=== PATIENT | male | born 1965 | race Caucasian/White ===

== ENCOUNTER → 2017-09-11 | Outpatient (CLI) | payer OTHER | END | disposition home or self-care (01) | LOC: CDC 09:36 | DX: Z01.810 Encounter for preprocedural cardiovascular examination (principal); R00.1 Bradycardia, unspecified | CPT/HCPCS: 93000 ==

== ENCOUNTER 2017-09-19 05:37 | Day surgery (SDC) | payer OTHER ==
[~2017-09-19] VITALS: Ht 182.9 cm; Wt 88.5 kg
[2017-09-19 05:56] VITALS: BP 113/77
[2017-09-19 13:09] VITALS: BP 119/60
[2017-09-19 19:25] VITALS: BP 105/64
[2017-09-19 23:32] VITALS: BP 112/60
[2017-09-20 03:27] VITALS: BP 104/58
[2017-09-20 07:24] VITALS: BP 107/58
[2017-09-20 07:32] LABS: HEMATOCRIT 35.7 % (38.0-50.0); MCH 30.7 PG (29.0-34.0); MCHC 34.2 G/DL (30.0-36.0); MCV 89.7 FL (86-99); PLATELET COUNT 122 K/uL (156-360); RBC DIS.WIDTH-CV 12.4 % (11.8-14.6); RBC DIS.WIDTH-SD 40.8 % (39-53); RED BLOOD COUNT 3.98 M/uL (4.00-5.50); WHITE BLOOD COUNT 5.6 K/uL (4.1-10.2)
[2017-09-20 07:34] LABS: HEMOGLOBIN 12.2 G/DL (12.5-16.6)
[2017-09-20 07:55] LABS: ALBUMIN 3.2 G/DL (3.2-4.8); ALKALINE PHOSPHATASE 34 IU/L (3-129); ALT (GPT) 13 IU/L (3-49); AST (GOT) 14 IU/L (2-34); CHLORIDE 104 MEQ/L (99-109); CREATININE 0.9 MG/DL (0.6-1.3); GFR ESTIMATE (CALCULATED) > 59 mL/min/ (58.99-99999); GLUCOSE 108 mg/dL (70-99); POTASSIUM 3.9 MEQ/L (3.7-5.4); SODIUM 139 MEQ/L (136-147); TOTAL BILIRUBIN 0.8 MG/DL (0.0-1.0); TOTAL PROTEIN 4.9 G/DL (6.4-8.3); UREA NITROGEN (BUN) 13 mg/dL (9-23)
[2017-09-20] MEDS ORDERED: HYDROCODON-ACE1 EAC7 PO (10:12)
[2017-09-20 11:00] VITALS: BP 104/60
== END 2017-09-20 11:56 | disposition home or self-care (01) ==
LOC: SDC 05:37 → 2SOUTH 10:57 → ENRESERV 10:58 → 2EAST 12:53 → SDC 15:16 → 2EAST 09-20 11:56
PROVIDERS: Student in an Organized Health Care Education/Training Program
PROC: 0WQF0ZZ Repair Abdominal Wall, Open Approach (ICD-10-PCS; principal; 2017-09-19)
PROC: 0YQA4ZZ Repair Bilateral Inguinal Region, Percutaneous Endoscopic Approach (ICD-10-PCS; principal; 2017-09-19)
DX: K40.20 Bilateral inguinal hernia, without obstruction or gangrene, not specified as recurrent (principal); K42.9 Umbilical hernia without obstruction or gangrene; R00.1 Bradycardia, unspecified; N40.0 Benign prostatic hyperplasia without lower urinary tract symptoms
CPT/HCPCS: 80053; 85027; C1781; G0378; J0131; J0690; J1170; J1885; J2250; J2405; J2710; J3010; J7120; J7643; S0020

== ENCOUNTER → 2017-10-02 | Outpatient (CLI) | payer OTHER ==
[~2017-10-02] MED LIST: HYDROCODON-ACE1 EAC7 PO
== END | disposition home or self-care (01) ==
LOC: RAD 11:00 → EDSTATUS 11:00 → RAD 11:12
DX: M47.896 Other spondylosis, lumbar region (principal); M16.0 Bilateral primary osteoarthritis of hip; Z98.890 Other specified postprocedural states
CPT/HCPCS: 72194